=== PATIENT | female | born 1960 | race Caucasian/White ===

== ENCOUNTER 2021-06-03 10:49 | Inpatient (IN) | payer OTHER, SELFPAY ==
[~2021-06-03] VITALS: Ht 154.9 cm; Wt 87.5 kg
[2021-06-03 12:08] LABS: BASOPHILS % (AUTO) 0.5 % (0.0-2.0); EOSINOPHILS # (AUTO) 0.3 K/uL (0-0.4); EOSINOPHILS % (AUTO) 4.9 % (0.0-4.0); HEMATOCRIT 37.7 % (36-48); HEMOGLOBIN 12.4 g/dL (12.0-16.0); LYMPHOCYTES # (AUTO) 1.5 K/uL (2.5-16.5); LYMPHOCYTES % (AUTO) 24.5 % (20.5-51.1); MEAN CORPUSCULAR HEMOGLOBIN 30 pg (27-31); MEAN CORPUSCULAR HGB CONC 33 g/dL (33-37); MEAN CORPUSCULAR VOLUME 90.1 fL (80-94); MONOCYTES # (AUTO) 0.4 K/uL (0.8-1.0); MONOCYTES % (AUTO) 6.7 % (1.7-9.3); NEUTROPHILS # (AUTO) 3.8 K/uL (1.8-7.7); NEUTROPHILS % (AUTO) 63.4 % (42.2-75.2); PLATELET COUNT (AUTO) 356 K/uL (140-450); RED BLOOD CELL COUNT(AUTO) 4.18 MIL/uL (4.20-5.40); WHITE BLOOD COUNT (AUTO) 5.9 K/uL (4.8-10.8)
[2021-06-03 12:21] LABS: ALBUMIN 3.4 g/dL (3.4-5.0); ANION GAP 10.8 (8-16); CARBON DIOXIDE 31.2 mmol/L (21-32); CREATININE 0.8 mg/dL (0.6-1.3); TOTAL BILIRUBIN 0.3 mg/dL (0.0-1.0)
[2021-06-03] MEDS ORDERED: LIDOCAINE 1% 500 MG/50 ML VIAL ONE (13:21)
[2021-06-03] MEDS ORDERED: BUPIVACAINE-MPF/EPI 0.25% 30 ML VIAL INJ ONE (13:21)
[2021-06-03] MEDS ORDERED: fentaNYL citrate 0.05 MG/ML VIAL ONE (13:27)
[2021-06-03] MEDS ORDERED: MIDAZOLAM 2 MG/2 ML VIAL ONE (13:27)
[2021-06-03] MEDS ORDERED: SUCCINYLCHOLINE CHLORIDE 200 MG/10 ML VIAL IVP ONE (13:28)
[2021-06-03] MEDS ORDERED: PROPOFOL 200 MG/20 ML VIAL IV ONE (13:28)
[2021-06-03] MEDS ORDERED: CLINDAMYCIN 600 MG/4 ML VIAL ONE (13:34)
[2021-06-03] MEDS ORDERED: SEVOFLURANE 250 ML BTL INH ONE (13:35)
[2021-06-03] MEDS ORDERED: SUGAMMADEX SODIUM 200 MG/2 ML VIAL IV ONE (13:35)
[2021-06-03] MEDS ORDERED: ROCURONIUM 50 MG/5 ML VIAL IV ONE (13:55)
[2021-06-03] MEDS ORDERED: ONDANSETRON 4 MG/2 ML VIAL ONE (13:57)
[2021-06-03] MEDS ORDERED: DEXAMETHASONE 4 MG/ML VIAL ONE ×2 (13:57)
[2021-06-03] MEDS ORDERED: ePHEDrine 50 MG/ML VIAL ONE (14:01)
[2021-06-03] MEDS ORDERED: MEPERIDINE 25 MG/ML SYR IVP PRN (14:10)
[2021-06-03] MEDS ORDERED: ONDANSETRON 4 MG/2 ML VIAL IVP PRN ×2 (14:10→18:40)
[2021-06-03] MEDS ORDERED: HYDROmorphone 1 MG/ML AMP IVP PRN (14:10)
[2021-06-03] MEDS ORDERED: diphenhydrAMINE 50 MG/ML VIAL IVP PRN ×2 (14:10→18:40)
[2021-06-03] MEDS ORDERED: MEPERIDINE 50 MG/ML SYR ONE ×2 (14:41→18:41)
[2021-06-03] MEDS ORDERED: NEOMYCIN/POLYMYXIN/BACITRACIN OIN 15 GM TUBE TP ONE (17:49)
[2021-06-03] MEDS ORDERED: FUROSEMIDE 40 MG/4 ML VIAL IVP ONE (18:02)
[2021-06-03] MEDS ORDERED: oxyCODONE/APAP 5/325 MG 1 TAB TAB PO PRN (18:40)
[2021-06-03] MEDS ORDERED: oxyCODONE 5 MG TAB PO PRN (18:50)
[2021-06-03] MEDS ORDERED: MORPHINE SULFATE 4 MG/ML SYR IVP PRN (21:15)
[2021-06-03] MEDS ORDERED: ACETAMINOPHEN 100 ML IV PRN (21:35)
[2021-06-03] MEDS: ONDANSETRON 4 MG/2 ML VIAL IVP PRN (22:24)
[2021-06-04] MEDS: LACTATED RINGERS 1,000 ML IV SCH ×2 (02:06→10:40)
[2021-06-04 06:11] LABS: BASOPHILS % (AUTO) 0.1 % (0.0-2.0); EOSINOPHILS % (AUTO) 0.1 % (0.0-4.0); HEMATOCRIT 35.3 % (36-48); HEMOGLOBIN 11.8 g/dL (12.0-16.0); LYMPHOCYTES # (AUTO) 0.7 K/uL (2.5-16.5); MEAN CORPUSCULAR HEMOGLOBIN 30 pg (27-31); MEAN CORPUSCULAR HGB CONC 33 g/dL (33-37); MONOCYTES # (AUTO) 0.7 K/uL (0.8-1.0); MONOCYTES % (AUTO) 5.8 % (1.7-9.3); NEUTROPHILS # (AUTO) 10.5 K/uL (1.8-7.7); PLATELET COUNT (AUTO) 313 K/uL (140-450); RED BLOOD CELL COUNT(AUTO) 3.93 MIL/uL (4.20-5.40); RED CELL DISTRIBUTION WIDTH 14.6 % (11.6-13.7); WHITE BLOOD COUNT (AUTO) 11.9 K/uL (4.8-10.8)
[2021-06-04 06:33] LABS: ALBUMIN 2.9 g/dL (3.4-5.0); ANION GAP 11.6 (8-16); CARBON DIOXIDE 29.8 mmol/L (21-32); CREATININE 0.9 mg/dL (0.6-1.3); POTASSIUM 4.4 mmol/L (3.5-5.1); TOTAL BILIRUBIN 0.4 mg/dL (0.0-1.0)
--- NOTE | 2021-06-04 08:27 | NUR ---
PATIENT HAS BEEN SCREENED AND CATEGORIZED LOW NUTRITION RISK. PATIENT WILL BE SEEN WITHIN 7 DAYS OF ADMISSION. 06/09/[address]
[2021-06-04] MEDS: ACETAMINOPHEN 100 ML IV SCH ×3 (09:22→18:16)
[2021-06-04] MEDS: CONJUGATED ESTROGENS VAG CREAM 42 GM TUBE VG SCH (10:45)
[2021-06-04] MEDS ORDERED: ACETAMINOPHEN 100 ML IV PRN (18:05)
[2021-06-04] MEDS: SIMETHICONE 80 MG TAB.CHEW PO PRN (18:16)
[2021-06-04] MEDS: oxyCODONE 5 MG TAB PO PRN (21:13)
[2021-06-05] MEDS: ONDANSETRON 4 MG/2 ML VIAL IVP PRN (03:09)
[2021-06-05] MEDS: SIMETHICONE 80 MG TAB.CHEW PO PRN ×2 (05:59→15:23)
[2021-06-05] MEDS: PANTOPRAZOLE 40 MG TABEC PO SCH (09:36)
[2021-06-05] MEDS: ACETAMINOPHEN 100 ML IV SCH (09:36)
[2021-06-05] MEDS: CONJUGATED ESTROGENS VAG CREAM 42 GM TUBE VG SCH (09:37)
[2021-06-05] MEDS: oxyCODONE 5 MG TAB PO PRN (12:02)
[2021-06-05] MEDS: DOCUSATE SODIUM 100 MG GELCAP PO PRN (12:03)
[2021-06-05] MEDS: ACETAMINOPHEN EXTRA STRENGTH 500 MG TAB PO SCH (18:19)
[2021-06-05] MEDS: IBUPROFEN 600 MG TAB PO SCH (23:09)
[2021-06-06] MEDS: ACETAMINOPHEN EXTRA STRENGTH 500 MG TAB PO SCH ×3 (00:01→12:01)
[2021-06-06] MEDS: IBUPROFEN 600 MG TAB PO SCH ×2 (05:04→13:46)
[2021-06-06] MEDS: PANTOPRAZOLE 40 MG TABEC PO SCH (09:41)
[2021-06-06] MEDS: SIMETHICONE 80 MG TAB.CHEW PO PRN (09:42)
[2021-06-06] MEDS: DOCUSATE SODIUM 100 MG GELCAP PO PRN (09:44)
[2021-06-06] MEDS: CONJUGATED ESTROGENS VAG CREAM 42 GM TUBE VG SCH (09:46)
[2021-06-06 12:39] VITALS: BP 130/74
--- NOTE | 2021-06-07 16:59 | NUR ---
SW CALLED PATIENT'S PCP OFFICE AT TO SCHEDULED A FOLLOW UP APPOINTMENT FOR PATIENT AFTER HER DC FROM [facility]. MAEGAN SPOKE TO ESTEFANY WHO PROVIDED A FOLLOW UP APPOINTMENT FOR PATIENT ON 06/14/2021 AT 01:30AM [place] [address] [facility] [id number]. MAEGAN THANKED ESTEFANY AND ENDED THE CALL. MAEGAN CALLED TO INFORM PATIENT ABOUT HER SCHEDULED APPOINTMENT WITHIN 7 DAYS OF HER DISCHARGE FROM [facility]. MAEGAN PROVIDED PATIENT WITH ALL INFORMATION TIME, DATE AND ADDRESS FOR HER FOLLOW UP APPOINTMENT. PATIENT AGREED TO ATTEND TO HER SCHEDULED APPOINTMENT AND THANK THESE [employer] FOR THE CALL.
== END 2021-06-06 14:15 | disposition home or self-care (01) | DRG 513 ==
LOC: MMU 10:49 → MFCC 20:21
PROVIDERS: ADMIT Obstetrics & Gynecology; ATTEND Obstetrics & Gynecology
PROC: 0UB77ZZ Excision of Bilateral Fallopian Tubes, Via Natural or Artificial Opening (ICD-10-PCS; 2021-06-03)
PROC: 0UT2FZZ Resection of Bilateral Ovaries, Via Natural or Artificial Opening With Percutaneous Endoscopic Assistance (ICD-10-PCS; 2021-06-03)
PROC: 0USG4ZZ Reposition Vagina, Percutaneous Endoscopic Approach (ICD-10-PCS; 2021-06-03)
PROC: 0TSD4ZZ Reposition Urethra, Percutaneous Endoscopic Approach (ICD-10-PCS; 2021-06-03)
PROC: 0UT9FZZ Resection of Uterus, Via Natural or Artificial Opening With Percutaneous Endoscopic Assistance (ICD-10-PCS; principal; 2021-06-03 13:00)
DX: N81.3 Complete uterovaginal prolapse (principal); E78.00 Pure hypercholesterolemia, unspecified; N39.46 Mixed incontinence; I10 Essential (primary) hypertension; Z20.822 Contact with and (suspected) exposure to COVID-19; Z90.710 Acquired absence of both cervix and uterus; Z59.00 Homelessness unspecified; Z80.1 Family history of malignant neoplasm of trachea, bronchus and lung
CPT/HCPCS: 36415; 80053; 85025; 86886; 86900; 86901; C1713; J0330; J1100; J1940; J2001; J2175; J2250; J2270; J2405; J2704; J3010; J3490